=== PATIENT | male | born 1980 | race Caucasian/White ===

== ENCOUNTER 2021-07-10 14:01 | Emergency (ER) | payer SELFPAY ==
[2021-07-10] MEDS ORDERED: Ibuprofen 800 MG TAB ONE (15:15)
[2021-07-10] MEDS ORDERED: Boostrix 0.5 ML (Tdap) VIAL ONE (15:16)
[2021-07-10] MEDS ORDERED: Morphine 4 MG/ML VIAL ONE (15:35)
== END 2021-07-10 16:24 | disposition home or self-care (01) ==
LOC: MADERS 14:01
DX: S82.55XA Nondisplaced fracture of medial malleolus of left tibia, initial encounter for closed fracture (principal); S52.615A Nondisplaced fracture of left ulna styloid process, initial encounter for closed fracture; S80.212A Abrasion, left knee, initial encounter; S80.211A Abrasion, right knee, initial encounter; F17.220 Nicotine dependence, chewing tobacco, uncomplicated; V43.52XA Car driver injured in collision with other type car in traffic accident, initial encounter
CPT/HCPCS: 29125; 90471; 90715; 96372; G0390; J2270